=== PATIENT | female | born 2000 | race Caucasian/White ===

== ENCOUNTER 2023-09-02 01:52 | Emergency (ER) | payer MEDICAID ==
[~2023-09-02] VITALS: Ht 165.1 cm; Wt 64.0 kg
[2023-09-02 02:03] VITALS: O2SAT 100
[2023-09-02] MEDS ORDERED: MAGNESIUM/ALUMINUM HYDROXIDE/SIMETHICONE 30ML UDC PO STA (02:09)
[2023-09-02] MEDS ORDERED: PANTOPRAZOLE SODIUM 40 MG/VIAL IV STA (02:09)
[2023-09-02] MEDS ORDERED: ONDANSETRON HCL 4MG/2ML INJ IV STA (02:09)
[2023-09-02 02:41] LABS: BASOPHILS % 1.1 % (0.0-2.0); EOSINOPHILS % 3.3 % (0.0-5.0); HEMATOCRIT. 37.8 % (36.0-48.0); HEMOGLOBIN. 12.2 g/dL (12.0-16.0); LYMPHOCYTES % 27.4 % (20.0-50.0); MEAN CORPUSCULAR HEMOGLOBIN 27.2 pg (28.0-32.0); MEAN CORPUSCULAR HGB CONC 32.3 g/dL (31.0-37.0); MEAN CORPUSCULAR VOLUME 84.3 fL (81.0-99.0); MONOCYTES % 5.7 % (2.0-8.0); NEUTROPHILS % 62.5 % (40.0-76.0); PLATELET 393 x1000/uL (130-400); RED BLOOD CELL COUNT 4.49 mill/uL (4.2-5.4); RED CELL DISTRIBUTION WIDTH 14.1 % (11.6-14.6)
[2023-09-02] MEDS: ACETAMINOPHEN 1000MG/100ML 100 ML IV ONE (02:42)
[2023-09-02] MEDS: SODIUM CHLORIDE 0.9% 1,000 ML IV ONE (02:42)
[2023-09-02] MEDS: PANTOPRAZOLE SODIUM 40 MG/VIAL IV NR (02:42)
[2023-09-02] MEDS: MAGNESIUM/ALUMINUM HYDROXIDE/SIMETHICONE 30ML UDC PO NR (02:43)
[2023-09-02] MEDS: ONDANSETRON HCL 4MG/2ML INJ IV NR (02:43)
[2023-09-02 02:51] LABS: CARBON DIOXIDE 28 mEq/L (21-32); CHLORIDE 103 mEq/L (98-107); POTASSIUM 3.5 mEq/L (3.5-5.1); SODIUM 139 mEq/L (136-145)
[2023-09-02 02:52] LABS: CALCIUM 9.6 mg/dL (8.7-10.4); INR 0.9; PROTHROMBIN TIME 10.4 sec (9.6-11.0)
[2023-09-02 02:54] LABS: HCG SCREEN NEGATIVE
[2023-09-02 02:56] LABS: CREATININE 0.8 mg/dL (0.6-1.0); GLUCOSE 130 mg/dL (70-105)
[2023-09-02 02:57] LABS: UREA NITROGEN BLOOD 8 mg/dL (9-23)
[2023-09-02 02:58] LABS: ALANINE AMINOTRANSFERASE 22 IU/L (10-49); ALBUMIN 5.2 g/dL (3.2-4.8); ASPARTATE AMINOTRANSFERASE 28 IU/L (<34)
[2023-09-02 02:59] LABS: BILIRUBIN DIRECT 0.1 mg/dL (<=3.0); BILIRUBIN TOTAL 0.5 mg/dL (0.1-1.0); PROTEIN TOTAL 8.2 g/dL (6.0-8.3)
[2023-09-02 03:21] LABS: ETHANOL BLOOD < 10 mg/dL (<10)
[2023-09-02] MEDS ORDERED: ONDA4TAB50 MT (03:52)
[2023-09-02] MEDS ORDERED: ACET-2708 MT (03:52)
[2023-09-02] MEDS ORDERED: PROT40 MT (03:52)
[2023-09-02 04:10] VITALS: BP 91/52; PULSE 92; RESP 18; TEMP 98.3
== END 2023-09-02 04:41 | disposition home or self-care (01) ==
LOC: ER 01:52
DX: R10.13 Epigastric pain (principal)
CPT/HCPCS: 80076; 80048; 80320; 84703; 83690; 85025; 85610; 36415; 96365; 96375; 99284; J2405; C9113; J7030; G0480; J0131